=== PATIENT | female | born 1955 ===

== ENCOUNTER 2022-01-12 12:14 | Outpatient (CLI) | payer MEDICARE, SELFPAY ==
--- NOTE | ~2022-01-12 | MR_ITS ---
EXAMINATION: MR pelvis wo/w con DATE: 01/12/2022 13:44 INDICATION: Urethral diverticulum. TECHNIQUE: Magnetic resonance imaging (MRI) of the pelvis was performed without and with 10 mL MultiH ance intravenous contrast. COMPARISON: None. FINDINGS: There are no dilated loops of bowel. There is diverticulosis of the colon without evidence of diverti culitis. There are no pathologically enlarged lymph nodes. There is no free intraperitoneal fluid. Th ere is focal wall thickening of the bladder on the left. There is a urethral diverticulum with fluid compartment measuring 1.8 x 0.7 x 1.2 cm. IMPRESSION: 1. Urethral diverticulum. 2. Focal wall thickening of the bladder on the left, which may be secondary to asymmetric bladder dis tension, but malignancy cannot excluded. Reviewed, dictated and finalized at location A. IMPRESSION: 1. Urethral diverticulum. 2. Focal wall thickening of the bladder on the left, which may be secondary to asymmetric bladder distension, but malignancy cannot excluded.
[2022-01-12 13:00] LABS: Estimated Glomerular Filt Rate > 60
== END 2022-01-12 12:15 | disposition home or self-care (01) ==
LOC: ANHIMG 12:25
PROVIDERS: Visit Provider Urology
DX: N36.1 Urethral diverticulum (principal)
CPT/HCPCS: 72197; A9577